=== PATIENT | female | born 1950 | race Caucasian/White ===

== ENCOUNTER → 2017-04-08 | Outpatient (CLI) | payer MEDICARE ==
[~2017-04-08] MED LIST: AMLO5TAB2 PO; BIOT10TA PO; CALTCHW5 PO; ESTR1TAB PO; LEXA20TA PO; LOSA100T PO; MIRA50TA PO; MULT-65 PO; OMEP20TA PO; PROG200C PO
[2017-04-08 09:05] LABS: BASOPHIL # 0.1 TH/MM3 (0-0.2); BASOPHIL % 1.9 % (0.0-2.0); EOSINOPHIL # 0.1 TH/MM3 (0-0.4); EOSINOPHIL % 1.4 % (0.0-4.0); HEMO FLAGS DIFF FINAL; LYMPH % 23.4 % (9.0-44.0); LYMPHOCYTE # 1.4 TH/MM3 (1.0-4.8); MEAN CELL VOLUME 96.9 FL (80.0-100.0); MEAN CORPUSCULAR HEMOGLOBIN 33.1 PG (27.0-34.0); MEAN CORPUSCULAR HGB CONC 34.2 % (32.0-36.0); MONO % 8.9 % (0.0-8.0); NEUT % 64.4 % (16.0-70.0); PLATELET COUNT 321 TH/MM3 (150-450); RED BLOOD COUNT 4.03 MIL/MM3 (4.00-5.30); RED CELL DISTRIBUTION WIDTH 13.1 % (11.6-17.2); WHITE BLOOD COUNT 6.2 TH/MM3 (4.0-11.0)
[2017-04-08 09:17] LABS: BACTERIA, URINE RARE /hpf; BLOOD, URINE NEG (NEG); GLUCOSE,URINE NEG (NEG); KETONE, URINE 10 mg/dL (NEG); MUCUS URINE FEW /lpf (OCC); NITRITE,URINE NEG (NEG); SQUAMOUS EPITHELIAL CELL URINE 3 /hpf (0-5); URINE COLOR YELLOW (YELLW/STRAW)
[2017-04-08 09:26] LABS: BICARBONATE 26.6 MEQ/L (21.0-32.0); POTASSIUM 4.6 MEQ/L (3.5-5.1)
--- NOTE | 2017-04-09 08:11 | EKG ---
Date Performed: 04/08/2017 Time Performed: 08:42:32 PTAGE: 66 years EKG: Sinus rhythm SEPTAL MYOCARDIAL INFARCTION, PROBABLY OLD ABNORMAL ECG PREVIOUS TRACING : 01/04/2001 10.24 DOCTOR: Sorin Soto Interpretating Date/Time 04/09/2017 08:06:11
== END ==
LOC: CPRE 08:06
PROVIDERS: ATTEND Obstetrics & Gynecology
DX: Z01.812 Encounter for preprocedural laboratory examination (principal); Z01.810 Encounter for preprocedural cardiovascular examination; D25.9 Leiomyoma of uterus, unspecified; R94.31 Abnormal electrocardiogram [ECG] [EKG]
CPT/HCPCS: 36415; 80048; 81001; 85025; 86850; 86900; 86901; 93005

== ENCOUNTER 2017-04-09 06:38 | Observation (INO) | payer MEDICARE ==
--- NOTE | 2017-04-07 16:07 | MH ---
cc: ROLLY CHOW DATE OF : 46 DATE OF ADMISSION: 04/09/2017 PREOPERATIVE DIAGNOSIS Thickened endometrial stripe with incidental fibroids, right inguinal hernia. PLAN: Schedule an inguinal hernia repair with Dr. Meier at the same time that I do a laparoscopically assisted vaginal hysterectomy and bilateral salpingo-oophorectomy. SCHEDULED PROCEDURE LAVH BSO and a concurrent inguinal hernia repair. HISTORY OF PRESENT CONDITION: The patient has been fairly new with me. She is a 66 year-old single white female P1 with an intact pelvis on hormone therapy. She has had very significant groin pain for 3-4 months and on evaluation it appeared she has a right inguinal hernia. Ultrasound has shown that she has a markedly thickened endometrial stripe. She has incidental fibroids which are likely not part of this and she has no postmenopausal bleeding. She does not smoke. She drinks socially. She does not use illicit drugs. Her general health is good. She has mild hypertension, mild depression, adequately treated with Lexapro. She is on Estradiol 1 milligram and medroxyprogesterone 2.5 milligrams. She also takes omeprazole for GERD. She is not involved with anybody at this time. FAMILY HISTORY: Noncontributory. REVIEW OF SYSTEMS: Otherwise negative. She has no problems with her bowel or bladder. ALLERGIES PENICILLIN. SHE HAS DIFFICULTY WITH POLYSPORIN. MEDICATIONS: 1. Amlodipine 5 milligrams. 2. Lexapro 20 milligrams. 3. Estradiol 1 milligram 4. Hydroxyprogesterone 2.5 milligrams 5. Losartan 100 milligrams 6. Myrbetriq 50 milligrams. 7. Omeprazole 20 milligrams 8. Dexamethasone, for reasons I am not sure, 0.5 milligrams per 5 cc oral elixir, (probably cough). PHYSICAL EXAMINATION: Weight is 143, height is 5'4", blood pressure today was 140/80. She has no thyroid enlargement. LUNGS: Clear. HEART: Regular. BREASTS: Reassuring without dominant mass, nipple discharge, skin retraction. ABDOMEN: Benign. Perineum is estrogenized. Vault is elevated. Cervix is multiparous. Uterus is not significantly enlarged. I cannot feel her ovaries. Guaiac was negative. EXTREMITIES: Some skin damage. Otherwise she is doing well. IMPRESSION: A menopausal female with symptomatic inguinal hernia, thickened endometrial stripe, and desire for definitive therapy for both conditions. She is scheduled for an [facility] BSO on . The risks, benefits, expectations, alternatives have been described in detail and she desires to proceed. MD REBA Chu/JOSH /10:37 AM /3:41 PM
[~2017-04-09] VITALS: Ht 160 cm; Wt 70.7 kg
[2017-04-09 07:24] VITALS: BP 117/66; PULSE 78; RESP 20; TEMP 98.9; O2SAT 98
[2017-04-09] MEDS ORDERED: LACTATED RINGER'S 1000 ML IV PRN (07:30)
[2017-04-09] MEDS ORDERED: VANCOMYCIN HCL 1000 MG ON-CALL/NS 250 ML IV SCH ×2 (07:30)
[2017-04-09] MEDS ORDERED: SODIUM CHLORID 0.9% 500 ML IV PRN (07:30)
[2017-04-09] MEDS ORDERED: METOPROLOL TARTRATE 25 MG TAB PO PRN (07:30)
[2017-04-09] MEDS ORDERED: INSULIN HUMAN REGULAR 1,000 UNITS/10 ML VIAL SQ PRN (07:30)
[2017-04-09] MEDS ORDERED: CHLORHEXIDINE GLUCONATE 2 % 1 PACK (2 CLOTHS) TOPICAL PRN (07:30)
[2017-04-09] MEDS ORDERED: POVIDONE IODINE 5% (ANTISEPSIS KIT) 4 APPLICATIONS EACH NARE PRN (07:30)
[2017-04-09] MEDS ORDERED: CLINDAMYCIN 600 MG/NS 100 ML IV SCH ×2 (07:45)
[2017-04-09] MEDS ORDERED: GENTAMICIN/SOD CHL 80 MG/100 ML IV SCH (07:45)
[2017-04-09] MEDS ORDERED: SODIUM CHLORIDE 0.9% INJ 100 ML ONE (08:15)
[2017-04-09] MEDS ORDERED: APREPITANT 40 MG CAP ONE (08:15)
[2017-04-09] MEDS ORDERED: FAMOTIDINE 20 MG/2 ML VIAL ONE ×2 (08:44→08:49)
[2017-04-09] MEDS ORDERED: MIDAZOLAM HCL 2 MG/2 ML VIAL ONE (08:48)
[2017-04-09] MEDS ORDERED: DEXAMETHASONE SOD PHOS 4 MG/ML VIAL ONE (08:48)
[2017-04-09] MEDS ORDERED: BUPIVACAINE/EPINEPHRINE 0.25% 50 ML VIAL ONE ×2 (08:48→10:13)
[2017-04-09] MEDS ORDERED: VASOPRESSIN 20 UNITS/ML VIAL (IVTITR) ONE (08:48)
[2017-04-09] MEDS ORDERED: ACETAMINOPHEN 1000 MG/100 ML VIAL IV ONE (08:50)
[2017-04-09] MEDS ORDERED: NEOSTIGMINE 3 MG/3 ML SYR IV ONE (12:00)
[2017-04-09] MEDS ORDERED: KETOROLAC TROMETHAMINE 30 MG/ML (IVP) VIAL IV PUSH ONE (12:00)
[2017-04-09] MEDS ORDERED: ONDANSETRON HCL 4 MG/2 ML VIAL IV PUSH ONE (12:00)
[2017-04-09] MEDS ORDERED: ePHEDrine/NS 25 MG/5 ML SYR IV ONE (12:00)
[2017-04-09] MEDS ORDERED: LACTATED RINGER'S 1000 ML INJ 1,000 ML IV ONE (12:00)
[2017-04-09] MEDS ORDERED: PROPOFOL 200 MG/20 ML AMP IV ONE (12:00)
--- NOTE | 2017-04-09 12:31 | PD.OP ---
Operative Report Date of Surgery: Apr 09, 2017 Preoperative Diagnosis: uterine fibroids and PMB Postoperative Diagnosis: same Procedure: LAVHBSO RIH by [place] enterocele cystoscopy Anesthesia: get Surgeon: Ayana Welch Accelerator Operator(s): indio VERA 2 Operation and Findings: Ayana Coughlin MD Apr 09, 2017 12:31
[2017-04-09] MEDS ORDERED: *MEPERIDINE 25 MG INJ VIAL PERIprocedural Use ONLY ONE (12:50)
[2017-04-09] MEDS ORDERED: fentaNYL CITRATE 250 MCG/5 ML AMP ONE (12:52)
[2017-04-09] MEDS: KETOROLAC TROMETHAMINE 30 MG/ML (IVP) VIAL IVP PRN ×2 (12:57→20:52)
[2017-04-09] MEDS ORDERED: *HYDROmorphone PF 1 MG VIAL PERIprocedural Use ONLY ONE (13:11)
[2017-04-09] MEDS ORDERED: DO NOT ADM ANY ANTICOAGULANT DRUGS PRN (13:15)
[2017-04-09] MEDS ORDERED: HYDROmorphone HCL PF 1 MG/ML VIAL IVP PRN (13:30)
[2017-04-09] MEDS ORDERED: SODIUM CHLORIDE 0.9% FLUSH 10 ML FLUSH IV FLUSH PRN (14:00)
[2017-04-09] MEDS: DOCUSATE SODIUM 100 MG CAP PO SCH (14:00)
[2017-04-09] MEDS ORDERED: diphenhydrAMINE HCL 25 MG CAP PO PRN (14:00)
[2017-04-09] MEDS: LACTATED RINGER'S 1000 ML INJ 1,000 ML IV SCH ×2 (14:49→22:55)
[2017-04-09] MEDS ORDERED: LORazepam 0.5 MG TAB PO PRN (15:00)
[2017-04-09] MEDS ORDERED: IBUPROFEN 600 MG TAB PO PRN (15:00)
[2017-04-09] MEDS ORDERED: ONDANSETRON HCL 4 MG/2 ML VIAL IVP PRN (15:00)
[2017-04-09] MEDS ORDERED: oxyCODONE/ACETAMINOPHEN 5 MG/325 MG TAB PO PRN ×2 (15:00)
[2017-04-09] MEDS ORDERED: *morphine SULFATE 8 MG/ML PERIprocedure ONLY ONE (15:17)
--- NOTE | 2017-04-09 19:58 | HHI.PR ---
Subjective Remarks Doing well, pain is well controlled, eating well. reviewed case she is sore from retraction wants wisdom out Objective Vital Signs Vital Signs Date Time Temp Pulse Resp B/P Pulse Ox O2 Delivery O2 Flow Rate FiO2 04/09/17 16:00 98.0 82 13 111/54 97 Nasal Cannula 2 04/09/17 15:00 78 12 96/52 97 Nasal Cannula 2 04/09/17 14:30 81 15 113/58 98 Nasal Cannula 2 04/09/17 14:00 74 13 101/57 98 Nasal Cannula 2 04/09/17 13:45 81 12 97/56 97 Nasal Cannula 2 04/09/17 13:30 68 13 98/55 96 Nasal Cannula 2 04/09/17 13:15 66 13 104/58 98 Nasal Cannula 2 04/09/17 13:00 65 14 114/61 95 Nasal Cannula 2 04/09/17 12:47 97.9 78 16 125/79 99 Simple Mask 6 04/09/17 07:24 98.9 78 20 117/66 98 I/O 04/08/17 04/08/17 04/08/17 04/09/17 04/09/17 04/09/17 06:59 14:59 22:59 06:59 14:59 22:59 Intake Total 1500 ml 50 ml Output Total 650 ml Balance 850 ml 50 ml Intake Oral 50 ml Other 1500 ml Output Urine Total 500 ml Estimated Blood Loss 150 ml Objective Remarks Chest is clear, regular rate and rhythm. Abdomen is soft and non-distended. Incisions clean and dry. Ext no CCE. perineum dry urine clear A/P Assessment and Plan NOS Doing well Home in am Ayana Welch MD Apr 09, 2017 19:58
[2017-04-09 20:00] VITALS: BP 102/55; PULSE 90; RESP 20; TEMP 97.9; O2SAT 95
--- NOTE | 2017-04-09 20:00 | HHI.DCPOC ---
Discharge Care Plan Report Symptoms to Your Doctor -Temperature above 100.5 degrees -Redness, of incision or excessive or foul smelling drainage -Unusual pain or calf pain -Increased vaginal bleeding -Painful or difficulty urinating -Feelings of extreme sadness or anxiety after 2 weeks Goals to Promote Your Health * To prevent worsening of your condition and complications * To maintain your health at the optimal level Directions to Meet Your Goals Take your medications as prescribed Follow your dietary instruction Follow activity as directed Ensure plenty of rest for recovery Drink fluids for hydration Keep your appointments as scheduled Take your immunizations and boosters as scheduled If your symptoms worsen call your PCP, if no PCP go to Urgent Care Center or Emergency Room Smoking is Dangerous to Your Health. Avoid second hand smoke Call the 24-hour crisis hotline for domestic abuse at Ayana Welch MD Apr 09, 2017 20:00
[2017-04-09] MEDS: SODIUM CHLORIDE 0.9% FLUSH 10 ML FLUSH IV FLUSH SCH (20:53)
[2017-04-09] MEDS ORDERED: ZOLPIDEM TARTRATE 5 MG TAB PO PRN (21:00)
[2017-04-10] VITALS: BP 103/54; PULSE 78; RESP 20; TEMP 97; O2SAT 96
[2017-04-10] MEDS: DOCUSATE SODIUM 100 MG CAP PO SCH (01:33)
[2017-04-10 07:37] LABS: BICARBONATE 26.9 MEQ/L (21.0-32.0); MEAN CELL VOLUME 98.7 FL (80.0-100.0); MEAN CORPUSCULAR HEMOGLOBIN 32.8 PG (27.0-34.0); MEAN CORPUSCULAR HGB CONC 33.2 % (32.0-36.0); PLATELET COUNT 219 TH/MM3 (150-450); POTASSIUM 4.1 MEQ/L (3.5-5.1); RED BLOOD COUNT 3.64 MIL/MM3 (4.00-5.30); RED CELL DISTRIBUTION WIDTH 13.3 % (11.6-17.2); WHITE BLOOD COUNT 12.5 TH/MM3 (4.0-11.0)
[2017-04-10 07:45] LABS: HEMO FLAGS AUTO DIFF
[2017-04-10] MEDS: SODIUM CHLORIDE 0.9% FLUSH 10 ML FLUSH IV FLUSH SCH (07:48)
[2017-04-10] MEDS: LACTATED RINGER'S 1000 ML INJ 1,000 ML IV SCH (07:49)
[2017-04-10 08:00] VITALS: BP 110/55; PULSE 76; RESP 16; TEMP 98.6; O2SAT 96
[2017-04-10 08:11] LABS: BANDS 2 % (0-6); METAMYELOCYTES 1 % (0-1); NEUTROPHIL # MANUAL DIFF 10.4 TH/MM3 (1.8-7.7); POLYS (SEG NEUTROPHILS) 80 % (16-70); SCAN/DIFF FINAL DIFF MANUAL; WBC DIFF SAMPLE 100
[2017-04-10 08:12] LABS: PLATELET ESTIMATE SMEAR NORMAL (NORMAL); PLATELET MORPHOLOGY NORMAL (NORMAL)
[2017-04-10] MEDS ORDERED: ESTRADIOL 1 MG TAB PO SCH (09:00)
[2017-04-10] MEDS ORDERED: amLODIPine BESYLATE 5 MG TAB PO SCH (09:00)
[2017-04-10] MEDS ORDERED: LOSARTAN 50 MG TAB PO SCH (09:00)
[2017-04-10] MEDS ORDERED: ESCITALOPRAM OXALATE 20 MG TAB PO SCH (09:00)
--- NOTE | 2017-04-10 22:56 | MP ---
cc: LINO WONG M.D.,AYANA CURTIS DATE OF SURGERY: 04/09/2017 PREOPERATIVE DIAGNOSIS: Right inguinal hernia, right groin pain. POSTOPERATIVE DIAGNOSES Right inguinal hernia, right groin pain. PROCEDURE: Laparoscopic preperitoneal right inguinal hernia repair with mesh. SURGEON Dr. Lino Wong MANNEQUIN MOLDER: Swati George MS3 ANESTHESIA: General. INDICATIONS: A 66 year-old woman presented with complaints of pain in right groin. She had previous ultrasound which demonstrated a small hernia. She was to undergo surgery in conjunction with Dr. Ayana Welch who will perform laparoscopic-assisted vaginal hysterectomy. INTRAOPERATIVE FINDINGS Small right indirect inguinal hernia with a round ligament lipoma removed, round ligament divided. The mesh broadly covering the hernia defect. ESTIMATED BLOOD LOSS: Minimal DESCRIPTION OF PROCEDURE IN DETAIL The patient identified as Mandi Graf, taken to the operating room, placed in supine position. Sequential compression devices were placed on bilateral lower extremities. Following induction of adequate general endotracheal anesthesia, the patient's abdomen was prepped and draped in the usual sterile fashion with DuraPrep. Time out procedure was performed. Following completion of time-out procedure to everyone's satisfaction within the room 0.25% Marcaine with epinephrine was placed at each incision site. Infraumbilical 2 cm incision was carried out with scalpel. Dissection continued posteriorly to the anterior rectus fascia on the right side. This was incised in a vertical fashion. A preperitoneal plane was developed with surgeon's finger directed towards the pubic symphysis. The preperitoneal dissecting balloon was placed in the preperitoneal space with the patient in slight Trendelenburg position, inflated to a total of about 25 pumps which allowed for identification of pubic symphysis, Eliseo's ligament, and inferior epigastric vessels on the right side. The balloon was desufflated and removed and the structural balloon trocar was placed in the preperitoneal space, its balloon inflated with CO2 insufflation until a level of 11 mmHg ensued. Two infraumbilical midline 5 millimeter trocars were placed in the preperitoneal space under direct laparoscopic view after incision of the skin with a scalpel. The anatomic structures were identified. Blunt dissection lateral and posterior to the round ligament was performed. A small amount of fatty tissue protruding into the inguinal canal was reduced with the blunt graspers. The adherent peritoneum was reduced to the base of the round ligament. The round ligament was divided with scissor electrocautery. There was no evidence of bleeding. The inguinal floor was reinforced with a 4 x 6 inch piece of Atrium ProLite mesh which had a small anterior lateral slit cut to allow for configuration of the mesh onto the inguinal floor. The mesh was held in position with Capture titanium tack placed, two in Eliseo's ligament medially and laterally, one superior medially, one superolaterally, and two to approximate the short slit just lateral to the inferior epigastric vessels. Care was taken to avoid tack placement inferolaterally to avoid cutaneous nerve injury. There was no evidence of femoral or direct hernia. The remaining local anesthetic was placed in the preperitoneal space. Trocars removed under direct visualization. The preperitoneal space was actively desufflated through the infraumbilical port. The trocars were removed. Dr. Welch was going to proceed with laparoscopically assisted vaginal hysterectomy. An occlusive dressing was placed over the incisions in preparation for repositioning, prepping and draping. The patient tolerated the procedure without apparent complication. Sponge, needle and instrument counts were correct at this portion of the case. The patient's care was turned over to Dr. Welch. MD SHEA Layton/JOSH /10:25 AM /10:33 PM
--- NOTE | 2017-04-10 23:44 | MP ---
cc: JTROMIATEAYANA DATE OF SURGERY April 09, 2017 DATE OF 1950 PREOPERATIVE DIAGNOSIS Uterine fibroids and some postmenopausal bleeding with a very stenotic cervix. Right inguinal hernia repair by Dr. Meier. POSTOPERATIVE DIAGNOSIS Uterine fibroids and some postmenopausal bleeding with a very stenotic cervix. Mild enterocele. Right inguinal hernia repair by Dr. Meier. PROCEDURE Right inguinal hernia repair performed by Dr. Meier and dictated by him. Then laparoscopic assisted vaginal hysterectomy with bilateral salpingo-oophorectomy and enterocele repair and cystoscopy by Rebekah. ANESTHESIA General endotracheal. SURGEON Rebekah for the second set of procedures. ASSISTANT Lozada, physician it assistant student, second year and Swati Kaba, third year medical student. FINDINGS The patient had undergone her right inguinal hernia repair prior to our entering into the room. Liver edge was unremarkable. Uterus and the right tube and ovary normal. The left tube was essentially missing and eventually the left ovary was found kind of tucked up underneath a reflection of peritoneum on the left side. The right round ligament had been transected by Dr. Meier. There was no evidence of cancer, endometriosis infection. She had multiple small pedunculated fibroids. The uterus was easily removed from its structures along with the adnexa and then taken out from below. Below was quite difficult due to the vaginal depth, the vaginal stenosis and the significant strength of her uterosacrals. An enterocele was obliterated and cystoscopy at the end of the case did not show any iatrogenic injury or intrinsic pathology and there was ureteral flow through both orifices. Sponge, instrument, needle count were correct. She tolerated the procedure well. PROCEDURE The patient was identified as Mandi Salcido in the holding area by Dr. Meier and her permits are reviewed with her and she was taken to the operating room while I was in a previous case. There she was prepped and draped in the usual sterile fashion the dorsal lithotomy position. She underwent right inguinal hernia repair by Dr. Meier leaving a small umbilical incision with a 10 mm port and then a midline 5 mm incision. Examination under anesthesia was performed and the cervix was very flush against the vaginal murphy but grasped with a tenaculum and acorn placed in the os. Attention was directed to the abdomen where the umbilical incision was used to hedrick into the peritoneal cavity and then the balloon inflated and the CO2 instilled. Then the lower midline incision was also used to hedrick into the peritoneal cavity and then a third incision for my use was placed in the left lower quadrant, 5-mm with trocar and sleeve and Marcaine with epi. Using these incisions systematic evaluation of the abdominal and pelvic contents was performed with the findings as noted above. The remnant of the right round ligament was placed on traction and the anterior leaf of the broad ligament was dissected off the lower uterine segment. Then the right tube and ovary placed on gentle traction and the infundibulopelvic ligament was transected anteriorly and successive pedicles were taken down to the uterosacral. On the left side there was no tube and initially we thought there was no ovary and the round ligament was transected and the anterior leaf of the broad ligament taken down and successive pedicles were taken down at the level of uterosacral. Attention was then directed to the perineum. She had exceptionally deep narrow vaginal vault and the uterosacrals were very very strong and it was a very difficult case to circumcise the cervix, enter the anterior and posterior cul-de-sacs and get the initial uterosacrals. The remaining pedicles were not quite so difficult and the uterus was removed with the right adnexa and then the enterocele obliteration was performed and the vagina was closed with one Vicryl in a running interlocking fashion. Attention was then redirected abdominally and there we found all pedicles to be hemostatic. The peritoneum was reassuring and no leaking, however, we did notice that there was a left ovary hidden underneath the left reflection of peritoneum on the sidewall. At that point it was excised and sent to pathology and then irrigation was performed. Esther was placed and then the pneumoperitoneum was closed under direct visualization. Then after the umbilical incision was closed with the fascia using fascial closure device and then the skin was closed with interrupted on the remaining three ports. Cystoscopy was performed using the laparoscope and the general manager land department to show a normal bladder with good flow from both ureteral orifices. Then the scope was removed. The Harp catheter was replaced. She was placed in dorsal supine position, awoken and taken to the recovery room in stable condition. Ayana Welch MD PPC/EO /12:31 PM /11:21 PM
== END 2017-04-10 12:31 | disposition home or self-care (01) ==
LOC: HSDC 06:38 → N07B 17:03
PROVIDERS: ADMIT Obstetrics & Gynecology; ATTEND Obstetrics & Gynecology
DX: K40.90 Unilateral inguinal hernia, without obstruction or gangrene, not specified as recurrent (principal); D25.9 Leiomyoma of uterus, unspecified; N88.8 Other specified noninflammatory disorders of cervix uteri; N80.0 Endometriosis of uterus; N89.5 Stricture and atresia of vagina; N95.0 Postmenopausal bleeding; I10 Essential (primary) hypertension; K21.9 Gastro-esophageal reflux disease without esophagitis
CPT/HCPCS: 00840; 49650; 57268; 58552; 80048; 85007; 85027; 88307; 96374; 96375; 96376; C1727; C1781; G0378; J0131; J1100; J1170; J1580; J1885; J2175; J2250; J2270; J2405; J2710; J3010; J3370; J7050; J7120; J8501